=== PATIENT | female | born 1990 | race Two or more races ===

== ENCOUNTER 2019-04-23 17:58 | Emergency (ER) | payer MEDICAID ==
[~2019-04-23] VITALS: Ht 147.3 cm; Wt 68.9 kg
[2019-04-23 17:58] VITALS: BP 142/98
--- NOTE | 2019-04-23 18:16 | PHYS DOC ---
Adult General Chief Complaint Chief Complaint: SHOULDER INJURY HPI HPI Patient is a 28 year old female who presents with above hx and complaint s of Lt. shoulder pain after sledding accident. Pt. is and due for delivery July 06. She denies any abdomen pain. Patient's heart rate is 144. This is patient's second .. Patient complains of pain in shoulder rated 8 out of 10.. Patient is unable to hold arm extended and localizes pain with isolation of rotator cuff. Does have deltoid sensation. Distal neurovascular intact and equal to right hand. Review of Systems Review of Systems Constitutional: Denies fever or chills [] Eyes: Denies change in visual acuity, redness, or eye pain [] HENT: Denies nasal congestion or sore throat [] Respiratory: Denies cough or shortness of breath [] Cardiovascular: No additional information not addressed in HPI [] GI: Denies abdominal pain, nausea, vomiting, bloody stools or diarrhea [] : Denies dysuria or hematuria [] Musculoskeletal: Complaints of left shoulder injury during a sledding accident Integument: Denies rash or skin lesions [] Neurologic: Denies headache, focal weakness or sensory changes [] Endocrine: Denies polyuria or polydipsia [] All other systems were reviewed and found to be within normal limits, except as documented in this note. Family History Family History Noncontributory Current Medications Current Medications See nursing for home meds Allergies Allergies No known drug allergies Physical Exam Physical Exam Constitutional: Well developed, well nourished, no acute distress, non-toxic appearance. [] HENT: Normocephalic, atraumatic, bilateral external ears normal, oropharynx moist, no oral exudates, nose normal. [] Eyes: PERRLA, EOMI, conjunctiva normal, no discharge. [] Neck: Normal range of motion, no tenderness, supple, no stridor. [] Cardiovascular:Heart rate regular rhythm, no murmur [] Lungs & Thorax: Bilateral breath sounds clear to auscultation [] Abdomen: Bowel sounds normal, soft, no tenderness, no masses, no pulsatile masses. [] Gravid. heart rate 144 Skin: Warm, dry, no erythema, no rash. [] Back: No tenderness, no CVA tenderness. [] Extremities: No tenderness, no cyanosis, no clubbing, ROM intact, no edema. [] Septic findings in left shoulder as per history of present illness Neurologic: Alert and oriented X 3, normal motor function, normal sensory function, no focal deficits noted. [] Psychologic: Affect anxious, judgement normal, mood normal. [] EKG EKG [] Radiology/Procedures Radiology/Procedures [address] [address] IMAGING REPORT Signed PATIENT: SEBASTIÁN PAKACCOUNT: [id number] : 1990 LOCATION: ER AGE: 28 SEX: F EXAM STATUS: REG ER ORD. PHYSICIAN: VIGNESH CHARLES MD REASON: fall sled accident, Gravid - shield PROCEDURE: SHOULDER 2+V LEFT Examination: SHOULDER 2+V LEFT History: Fell. Pain. Sledding accident. Comparison/Correlation: None Findings: Total 3 images of the left shoulder were obtained. The joint spaces are normal. No acute fracture or bony destruction. Soft tissues are grossly unremarkable. No degenerative change. Impression: No suspicious process. Electronically signed by: Mukund Knox MD (04/23/2019 9:22 PM) [facility] DICTATED AND SIGNED BY: MUKUND KNOX MD DATE: 04/23/192121 CC: VIGNESH CHARLES MD; PCP,NO ~ [][address] [address] IMAGING REPORT Signed PATIENT: SEBASTIÁN PAKACCOUNT: [id number] : 1990 LOCATION: ER AGE: 28 SEX: F EXAM STATUS: REG ER ORD. PHYSICIAN: VIGNESH CHARLES MD REASON: fall sled accident, Gravid - shield PROCEDURE: CHEST PA & LATERAL CHEST PA LATERAL History: Trauma. . Comparison: None. Findings: No consolidation or pleural effusion. Normal heart size. No pneumothorax. Partially imaged . Impression: 1. No acute cardiopulmonary process. Electronically signed by: Nicholas Gao DO (04/23/2019 9:20 PM) [place] [id number] DICTATED AND SIGNED BY: NICHOLAS GAO DO DATE: 04/23/192119 CC: VIGNESH CHARLES MD; PCP,NO ~ Course & Med Decision Making Course & Med Decision Making Pertinent Labs and Imaging studies reviewed. (See chart for details) Patient use ice packs as needed. Take only Tylenol for pain. Wear sling. Follow- up primary care. Take arm out of sling 4 times a day for passive range of motion. Return if any concerns. 1. Rotator Cuff Injury Lt. [] Dragon Disclaimer Dragon Disclaimer This electronic medical record was generated, in whole or in part, using a voice recognition dictation system. Departure Departure: Disposition: 01 HOME/RESIDENCE PRIOR TO ADM Condition: STABLE Referrals: PCP,KATIE (PCP) Irene Disclaimer This chart was dictated in whole or in part using Voice Recognition software in a busy, high-work load, and often noisy Emergency Department environment. It may contain unintended and wholly unrecognized errors or omissions. VIGNESH CHARLES MD Apr 23, 2019 18:16
[2019-04-23] MEDS ORDERED: oxyCODONE/APAP 5/325 1 TAB TABLET PO ONE (18:30)
--- NOTE | 2019-04-23 21:23 | RAD ---
CHEST PA LATERAL History: Trauma. . Comparison: None. Findings: No consolidation or pleural effusion. Normal heart size. No pneumothorax. Partially imaged . Impression: 1. No acute cardiopulmonary process. Electronically signed by: Nicholas Gao DO (04/23/2019 9:20 PM) [facility]
--- NOTE | 2019-04-23 21:25 | RAD ---
Examination: SHOULDER 2+V LEFT History: Fell. Pain. Sledding accident. Comparison/Correlation: None Findings: Total 3 images of the left shoulder were obtained. The joint spaces are normal. No acute fracture or bony destruction. Soft tissues are grossly unremarkable. No degenerative change. Impression: No suspicious process. Electronically signed by: Mukund Alvarez MD (04/23/2019 9:22 PM) [facility]
== END 2019-04-23 19:17 | disposition home or self-care (01) ==
LOC: ER 17:58
DX: O9A.213 Injury, poisoning and certain other consequences of external causes complicating pregnancy, third trimester (principal); S46.002A Unspecified injury of muscle(s) and tendon(s) of the rotator cuff of left shoulder, initial encounter; Z3A.00 Weeks of gestation of pregnancy not specified; W18.39XA Other fall on same level, initial encounter; Y93.23 Activity, snow (alpine) (downhill) skiing, snowboarding, sledding, tobogganing and snow tubing; Y92.89 Other specified places as the place of occurrence of the external cause; Y99.8 Other external cause status
CPT/HCPCS: 71046; 73030; 99284

== ENCOUNTER 2019-08-07 13:34 | Emergency (ER) | payer MEDICAID ==
[~2019-08-07] VITALS: Ht 147.3 cm; Wt 68.9 kg
[2019-08-07] MEDS ORDERED: IV NORMAL SALINE 1,000ML 1,000 ML IV ONE (14:00)
[2019-08-07 14:19] LABS: BASO % 1 % (0-3); EOS # 0.2 x10^3/uL (0.0-0.7); EOS % 3 % (0-3); HEMATOCRIT 41.9 % (36.0-47.0); HEMOGLOBIN 13.2 g/dL (12.0-15.5); LYMPH % 27 % (24-48); MEAN CORPUSCULAR HEMOGLOBIN 24 pg (25-35); MEAN CORPUSCULAR HGB CONC 32 g/dL (31-37); MEAN CORPUSCULAR VOLUME 75 fL (79-100); MONO # 0.4 x10^3/uL (0.0-1.1); MONO % 6 % (0-9); NEUT # 4.8 x10^3uL (1.8-7.7); NEUT % 63 % (31-73); PLATELET COUNT 210 x10^3/uL (140-400); RED BLOOD COUNT 5.61 x10^6/uL (3.50-5.40); RED CELL DISTRIBUTION WIDTH 12.7 % (11.5-14.5); WHITE BLOOD COUNT 7.5 x10^3/uL (4.0-11.0)
[2019-08-07 14:31] LABS: PREG TEST PT QUAL NEGATIVE (NEG)
--- NOTE | 2019-08-07 15:14 | RAD ---
Examination: PELVIS COMPLETE History: Menorrhagia, on 07/01/2019 Comparison/Correlation: None Findings: Transabdominal pelvic ultrasound exam was performed. Uterus measures 10.4 cm x 5.9 cm x 6 cm. Endometrial thickness is 1.3 cm myometrium is unremarkable. No intrauterine fluid collection. No flow identified within the uterine cavity to suggest retained products of conception. Right ovary measures 3.3 cm x 1.8 cm x 1.7 cm. The left ovary measures 2.6 cm x 2.3 cm x 1.8 cm. Left adnexal follicle measuring 1.4 cm diameter is present and physiologic in appearance. No adnexal masses are identified. No pelvic free fluid. Impression: No suspicious process. Electronically signed by: Mukund Alvarez MD (08/07/2019 3:10 PM) [facility] [place]
--- NOTE | 2019-08-07 15:37 | PHYS DOC ---
Past History Past Medical History: No Pertinent History Past Surgical History: No Surgical History Smoking: Non-smoker Alcohol Use: None Drug Use: None General Adult EDM: Chief Complaint: VAGINAL BLEEDING HPI: HPI: 28-year-old female presents with report of vaginal bleeding 3 days. Patient reports she gradually delivered her second child on 07/01/2019. Patient reports significant amount of vaginal bleeding whenever patient stands up. Reports some associated dizziness. Denies fever or chills. Denies current . Denies any pain. Review of Systems: Review of Systems: Constitutional: Denies fever or chills Eyes: Denies redness or eye pain HENT: Denies nasal congestion or sore throat Respiratory: Denies cough or shortness of breath Cardiovascular: Denies chest pain or palpitations GI: Denies abdominal pain, nausea, or vomiting /[employer]: Denies dysuria or hematuria; reports abnormal vaginal bleeding; denies vaginal discharge Musculoskeletal: Denies back pain or joint pain Integument: Denies rash or skin lesions Neurologic: Denies headache, focal weakness or sensory changes; reports dizziness Complete systems were reviewed and found to be within normal limits, except as documented in this note. Current Medications: Current Meds: Current Medications Medications (Trade) Dose Ordered Sig/Thien Start Time Stop Time Status Last Admin Dose Admin Sodium Chloride 1,000 ml @ 1,000 mls/hr 1X ONCE 08/07/19 14:00 08/07/19 14:59 DC 08/07/19 14:05 1,000 MLS/HR Allergies: Allergies: Allergies Coded Allergies Type Severity Reaction Last Updated Verified No Known Drug Allergies 04/23/19 No Physical Exam: PE: Constitutional: Well developed, well nourished, no acute distress, non-toxic appearance HENT: Normocephalic, atraumatic, oropharynx moist Eyes: Conjunctiva normal, no discharge Neck: Normal range of motion, no tenderness, supple Lungs & Thorax: No respiratory distress, equal chest rise and fall Abdomen: Soft, no tenderness, no guarding/rebound tenderness/distention Pelvic exam: Chaperoned RN, external genitalia normal, moderate amount of blood noted in vaginal vault, some blood clots appreciated, oozing from cervical os, prominence noted to anterior aspect of cervical os, no CMT, no adnexal tenderness Skin: Warm, dry, no erythema, no rash Back: No tenderness, no CVA tenderness Extremities: No tenderness, ROM intact, no edema Neurologic: Alert and oriented X 3, no focal deficits noted Psychologic: Affect normal, judgment normal Current Patient Data: Labs: Laboratory Tests Test 08/07/19 14:00 White Blood Count 7.5 x10^3/uL (4.0-11.0) Red Blood Count 5.61 x10^6/uL (3.50-5.40) H Hemoglobin 13.2 g/dL (12.0-15.5) Hematocrit 41.9 % (36.0-47.0) Mean Corpuscular Volume 75 fL (79-100) L Mean Corpuscular Hemoglobin 24 pg (25-35) L Mean Corpuscular Hemoglobin Concent 32 g/dL (31-37) Red Cell Distribution Width 12.7 % (11.5-14.5) Platelet Count 210 x10^3/uL (140-400) Neutrophils (%) (Auto) 63 % (31-73) Lymphocytes (%) (Auto) 27 % (24-48) Monocytes (%) (Auto) 6 % (0-9) Eosinophils (%) (Auto) 3 % (0-3) Basophils (%) (Auto) 1 % (0-3) Neutrophils # (Auto) 4.8 x10^3uL (1.8-7.7) Lymphocytes # (Auto) 2.0 x10^3/uL (1.0-4.8) Monocytes # (Auto) 0.4 x10^3/uL (0.0-1.1) Eosinophils # (Auto) 0.2 x10^3/uL (0.0-0.7) Basophils # (Auto) 0.0 x10^3/uL (0.0-0.2) Prothrombin Time 10.5 SEC (9.4-11.4) Prothrombin Time INR 1.0 (0.9-1.1) Activated Partial Thromboplast Time 28 SEC (23-33) Serum Test, Qualitative Negative (NEG) Microbiology 08/07/19 Wet Prep - Final, Complete Vital Signs: Vital Signs Date Time Temp Pulse Resp B/P (MAP) Pulse Ox O2 Delivery O2 Flow Rate FiO2 08/07/19 13:34 98.0 88 18 115/80 (92) 97 Room Air EKG: EKG: [] Radiology/Procedures: Radiology/Procedures: PROCEDURE: PELVIS COMPLETE Examination: PELVIS COMPLETE History: Menorrhagia, on 07/01/2019 Comparison/Correlation: None Findings: Transabdominal pelvic ultrasound exam was performed. Uterus measures 10.4 cm x 5.9 cm x 6 cm. Endometrial thickness is 1.3 cm myometrium is unremarkable. No intrauterine fluid collection. No flow identified within the uterine cavity to suggest retained products of conception. Right ovary measures 3.3 cm x 1.8 cm x 1.7 cm. The left ovary measures 2.6 cm x 2.3 cm x 1.8 cm. Left adnexal follicle measuring 1.4 cm diameter is present and physiologic in appearance. No adnexal masses are identified. No pelvic free fluid. Impression: No suspicious process. Electronically signed by: Mukund Alvarez MD (08/07/2019 3:10 PM) [facility] [place] Course & Med Decision Making: Course & Med Decision Making Pertinent Labs and Imaging studies reviewed. (See chart for details) Patient presents with menorrhagia 3 days. Patient with history of vaginal delivery 2 months ago. Patient does report some associated dizziness. Afebrile. Labs obtained and posted to chart. H&H stable. Coags also normal. IV fluid hydration given. Pelvic exam performed. Moderate amount of blood noted in vaginal vault with active oozing from the os. No CMT or adnexal tenderness. Pelvic ultrasound without significant finding. Patient stable for discharge with outpatient follow-up with PCP/[employer]. Discussed findings and plan with patient, who acknowledges understanding and agreement. Irene Disclaimer: Irene Disclaimer: This electronic medical record was generated, in whole or in part, using a voice recognition dictation system. Departure Departure: Impression: Primary Impression: Menorrhagia Qualified Codes: N92.2 - Excessive menstruation at puberty Disposition: 01 HOME, SELF-CARE Condition: STABLE Referrals: PCP,KATEI (PCP) Patient Instructions: Menorrhagia, [id number] Additional Instructions: Increase fluid hydration JENNY MONAHAN DO Aug 07, 2019 15:37
[2019-08-07 16:00] VITALS: BP 116/70
[2019-08-08 16:07] LABS: CHLAMYDIA PROBE Negative (Negative)
== END 2019-08-07 16:03 | disposition home or self-care (01) ==
LOC: ER 13:34
DX: O90.89 Other complications of the puerperium, not elsewhere classified (principal); N93.9 Abnormal uterine and vaginal bleeding, unspecified; R42 Dizziness and giddiness
CPT/HCPCS: 36415; 76856; 84703; 85025; 85610; 85730; 87491; 87591; 96360; 99284; Q0111; J7030